=== PATIENT | male | born 1995 | race Caucasian/White ===

== ENCOUNTER → 2020-05-16 15:57 | Outpatient (CLI) | payer OTHER, SELFPAY ==
--- NOTE | 2020-05-16 16:06 | US_ITS ---
PROCEDURE: US TESTICULAR CLINICAL INDICATION: RT TESTICULAR PAIN, CRUSHING INJURY OF SCROTUM AND TESTIS COMPARISON: No exams were available for comparison FINDINGS: The right testis measures 4.5 x 3.5 x 2.5 centimeters. The left testis measures 4.3 x 3.2 x 2.3 centimeters. Homogeneous echotexture of the bilateral testes noted without evidence of focal lesions. Normal vascularity is noted bilaterally. No evidence of focal fluid collections. The epididymis are normal in size bilaterally without evidence of focal lesions. IMPRESSION: Unremarkable testicular ultrasound. Dictated by: Sheeba Jerez 05/16/2020 16:38 Sheeba Jerez in [facility] 05/16/2020 16:38
== END ==
LOC: RT 16:01 → RAD 16:05
PROVIDERS: PCP Family Medicine; Visit Provider Family Medicine
DX: N50.811 Right testicular pain (principal); S38.02XA Crushing injury of scrotum and testis, initial encounter
CPT/HCPCS: 76870

== ENCOUNTER 2022-11-02 13:44 | Emergency (ER) | payer BC, SELFPAY ==
[2022-11-02] VITALS (8 sets, daily range): BP systolic 118–137; BP diastolic 67–86; PULSE 59–79; RESP 16–18; TEMP 36.9; O2SAT 96–100; BMI 31.1
[2022-11-02 14:59] LABS: Coronavirus 19, PCR Not Detected (NotDetected); Influenza A, PCR Not Detected (NotDetected); Influenza B, PCR Not Detected (NotDetected)
--- NOTE | 2022-11-02 16:11 | PC.NURSE ---
rounded on pt let him know we were working on getting room cleaned and we would move him back
--- NOTE | 2022-11-02 16:16 | PC.NURSE ---
pt was moved back to room 7 given a warm blanket and turn light off,call light at bs
--- NOTE | 2022-11-02 17:16 | HMH.EDGENADL ---
Discharge Plan Disposition Patient Disposition: Home, Self-Care Chief Complaint: Nausea/Vomiting/Diarrhea Prescriptions Prescriptions: No Action Duofilm 17 % liquid 1 applic topical HS Qty: 9.8 5RF Referrals Follow up/Referrals: Philippe Sawant MD [Primary Care Provider] - See instructions Activity Restrictions/Add. Instructions Additional Instructions/Restrictions: Call your family doctor to establish care for this visit to the emergency department and schedule follow-up within 48 hours to ensure improvement. If you have any worsening of your condition or any other concerning signs or symptoms, return to the emergency department or your primary care doctor for further evaluation. Take Tylenol 1000 mg every 6 hours (4 times daily) and ibuprofen 400 mg every 6 hours (4 times daily) as needed with food and water to prevent GI upset and kidney damage. Clinical Impressions Clinical Impression: Headache Instructions Patient Instructions: DI for Diarrhea and Traveler's Diarrhea -- Adult, DI for Diarrhea and Traveler's Diarrhea -- Child, DI for Nausea -- Adult, DI for Nausea -- Child Discharge ED Provider: Abdelrahman Alfonso General Adult HPI General Chief complaint: Nausea/Vomiting/Diarrhea Stated complaint: [place], vomiting Time Seen by Provider: 11/02/22 16:31 Mode of Arrival: Ambulatory Source of Information: Patient Limitations: No Limitations Description of Symptoms (Recalled from ER Triage Doc. by RN): Pt states that he has had a headache since 0700 with vomiting. States that he took both tylenol and ibuprofen but has been too nauseaus to keep them down. Pt has low grade fever. Pt denies any cough or other symptoms. History of Present Illness HPI narrative: 27-year-old male with no relevant medical history presenting with headache. Patient states that he woke up today, 11/02 with moderate headache. Throughout today, is gotten worse. Associated with vomiting. Denies neurologic deficits, blurry vision, double vision, facial swelling, or any other concerns. No balance issues. Headache is not positional, severe in intensity, does not radiate, fronal. Patient tried to take Tylenol and Motrin, but vomited it up secondary to GI upset. Vomit is nonbloody, nonbilious. Denies diarrhea Related Data Previous Rx's Medication Instructions Recorded salicylic acid 17 % topical liquid 1 applic topical HS #9.8 mL 11/14/21 (Duofilm) Allergies Allergy/AdvReac Type Severity Reaction Status Date / Time No Known Allergies Allergy Unknown Uncoded 11/14/21 10:54 [facility] Disclaimer: The information contained in this section may have been updated after the patient was seen, as this information can be updated by other users. Social History Smoking Status: Never smoker second hand exposure: No alcohol intake: never substance use type: denies use current occupational status: employed Travel in the last 8 weeks: Inside the [place] housing: house ROS Obtained: Yes All systems reviewed & no additional complaints except as documented Physical Exam General General appearance: alert, in no apparent distress and other ( ) Head Head exam: atraumatic and normocephalic Eye Eye exam: Present normal appearance, PERRL and EOMI ENT ENT exam: Present mucous membranes moist Neck Neck exam: Present normal inspection, full ROM and trachea midline Respiratory Respiratory exam: Present normal lung sounds bilaterally; Absent respiratory distress, wheezes, stridor, accessory muscle use or prolonged expiratory phase Cardiovascular Cardiovascular exam: Present regular rate and normal rhythm Abdominal Exam Abdominal exam: Present soft; Absent distention, tenderness, guarding, rebound, rigidity or normal bowel sounds Extremities Exam Extremities exam: Absent edema Neurological Exam Neurological exam: Present alert, oriented X3, CN II-XII intact and normal gait; Absent
== END 2022-11-02 19:56 | disposition home or self-care (01) ==
PROVIDERS: Emergency Provider Emergency Medicine; PCP Family Medicine
DX: R51.9 Headache, unspecified (principal); R11.10 Vomiting, unspecified; R50.9 Fever, unspecified
CPT/HCPCS: 87636; 96361; 96374; 96375; 99284; J0131; J2405

== ENCOUNTER 2024-11-16 08:45 | Outpatient (CLI) | payer BC, SELFPAY ==
--- OUTSIDE RECORDS SUMMARY | 2024-11-17 12:10 | XMS_ITS | Clinical Summary ---
Author Organization [facility] Address [address] [place] [address] Care Team Providers Care Therapy Technician Name Role Phone Jarvis Rose MD Primary Care Provider + Allergies No known active allergies Medications No known medications Active Problems No known active problems Family History Medical History Relation Name Comments Hypertension Father Cancer Other grandparent Diabetes Other grandparent Heart attack Other grandparent Hypertension Other grandparent Relation Name Status Comments Father Other grandparent Social History Tobacco Use Types Packs/Day Years Used Date Smoking Tobacco: Never Smokeless Tobacco: Current Snuff Alcohol Use Standard Drinks/Week Comments No 0 (1 standard drink = 0.6 oz pur e alcohol) Abuse Screen Answer Date Recorded Unsafe at Home or Work/School Not on file Feels Threatened by Someone? Not on file 10/2022 Does Anyone Keep You from Co ntacting Others or Doint Things Outside the Home? Not on file 11/23/2022 Physical Sign of Abuse Present Not on file 1 Housing Stability Answer Date Recorded Current Living Arrangements Not on file 10/2022 Potentially Unsafe Housing Conditions Not on selam e 11/23/2022 Family and Community Support Answer Colin e Recorded Help with Day-to-Day Activities Not on file 11/23/2022 Lonely or Isolated Not on file 11/23/2022 Employment Answer Date Recorded Do you want help finding or keeping work or a harriet b? Not on file 11/23/2022 Disabilities Answer Date Recorded Concentrating, Remembering, or Making Decisions Difficulty Not on file 11/23/2022 Doing Errands Independently Difficulty Not on fi le 11/23/2022 Education Answer Date Recorded Help with school or training? Not on file Preferred Language Not on file 11/23/2022 Sex and Gender Information Value Date Recorded Sex Assigned at Not on file Legal Sex Male 12:55 PM EDT Gender Identity Not on file Sexual Orientation Not on file Last Filed Vital Signs Vital Sign Reading Time Taken Comments Blood Pressure 116/68 04/21/2018 9:03 AM EST Pulse 77 04/21/2018 9:03 AM EST Temperature 36.7 C (98 F) 04/21/2018 9:03 AM EST Respiratory Rate - - Oxygen Saturation 97% 04/21/2018 9:03 AM EST Inhaled Oxygen Concentration - - Weight 83 kg (183 lb) 06/03/2016 10:54 AM EDT Height - - Body Mass Index - - Plan of Treatment Health Maintenance Due Date Last Done Comments TDAP/TD VACCINES (1 - Tdap) 2016 ANNUAL PHYSICAL 05/27/2016 HEPATITIS C SCREENING 05/27/2016 INFLUENZA VACCINE 09/15/2024 Pneumococcal Vaccine 0-49 Aged Out No longer eligible based on patient's age to complete this topic [facility] [employer] [place] [id number] Care Teams Therapy Technician Relationship Specialty Start Date End Date Jarvis Rose MD PCP - General Family Medicine 06/03/16
== END 2024-11-16 23:59 ==
LOC: LAB.DROPOF 11-17 12:09
PROVIDERS: PCP Nurse Practitioner; Visit Provider Nurse Practitioner
DX: L05.91 Pilonidal cyst without abscess (principal)
CPT/HCPCS: 87070; 87205